=== PATIENT | male | born 1955 | race Hispanic/Latino ===

== ENCOUNTER 2018-05-18 13:26 | Emergency (ER) | payer MEDICARE ==
[2018-05-18] MEDS ORDERED: Morphine 4 mg/ml ISec IVP STA (14:06)
--- NOTE | 2018-05-18 14:13 | ED PDOC ---
Arrival/HPI - General Chief Complaint: Abdominal Pain Historian: Patient - History of Present Illness Narrative History of Present Illness (Text): 05/18/18 14:13 62 y/o male, pmh including chronic lower back pain, previous alcohol abuse, nkda, c/o lower abdominal pain x 3-4 days. Pt. stated that she has lower abdominal on and off x 3-4 days, associated with diarrhea, stated that flared up his chronic lower back pain as well with no new injury or fall, no numbness or tingling, no headache or night sweat, no rash, no palpitation, no chest pain or shortness of breath, no other medical or psychological complaints. Past Medical History - Provider Review Nursing Documentation Reviewed: Yes - Infectious Disease Hx of Infectious Diseases: None - Cardiac Hx Cardiac Disorders: No - Musculoskeletal/Rheumatological Hx Back Pain: Yes Hx Herniated Disk: Yes - Gastrointestinal Hx Gastrointestinal Disorders: No - Genitourinary/Gynecological Hx Genitourinary Disorders: No - Psychiatric Hx Substance Use: No - Anesthesia Hx Anesthesia: No Family/Social History - Physician Review Nursing Documentation Reviewed: Yes Family/Social History: Unknown Family HX Smoking Status: Current Some Days Smoker Hx Alcohol Use: No Hx Substance Use: No Allergies/Home Meds Allergies/Adverse Reactions: Allergies No Known Allergies Allergy (Verified 05/18/18 13:39) Review of Systems - Review of Systems Constitutional: absent: Fatigue, Fevers Eyes: absent: Vision Changes ENT: absent: Hearing Changes Respiratory: absent: SOB, Cough Cardiovascular: absent: Chest Pain Gastrointestinal: Abdominal Pain, Diarrhea. absent: Nausea, Vomiting Musculoskeletal: Back Pain. absent: Arthralgias Skin: absent: Rash, Pruritis Neurological: absent: Headache, Dizziness Psychiatric: absent: Anxiety, Depression, Suicidal Ideation Physical Exam Vital Signs Reviewed: Yes Vital Signs Temp Pulse Resp BP Pulse Ox 05/18/18 13:35 98.6 F 80 18 202/84 H 99 Temperature: Afebrile Blood Pressure: Hypertensive Pulse: Regular Respiratory Rate: Normal Appearance: Positive for: Well-Appearing, Non-Toxic, Comfortable Pain Distress: Moderate Mental Status: Positive for: Alert and Oriented X 3 - Systems Exam Head: Present: Atraumatic, Normocephalic Pupils: Present: PERRL Extroacular Muscles: Present: EOMI Conjunctiva: Present: Normal Mouth: Present: Moist Mucous Membranes Neck: Present: Normal Range of Motion Respiratory/Chest: Present: Clear to Auscultation, Good Air Exchange. No: Respiratory Distress, Accessory Muscle Use Cardiovascular: Present: Regular Rate and Rhythm, Normal S1, S2. No: Murmurs Abdomen: Present: Tenderness (mild lower abd tenderness. ), Normal Bowel Sounds. No: Distention, Peritoneal Signs, Rebound, Guarding Back: Present: Normal Inspection. No: CVA Tenderness, Midline Tenderness, Paraspinal Tenderness, Pain with Leg Raise, Decubitus Ulcer Upper Extremity: Present: Normal Inspection. No: Cyanosis, Edema Lower Extremity: Present: Normal Inspection. No: Edema Neurological: Present: GCS=15, CN II-XII Intact, Speech Normal Skin: Present: Warm, Dry, Normal Color. No: Rashes Psychiatric: Present: Alert, Oriented x 3, Normal Insight, Normal Concentration Medical Decision Making ED Course and Treatment: 05/18/18 14:13 -labs -CT -IVF/pepcid/morphine -Observe and reassess 05/18/18 17:57 -EKG: SR @ 84 BPM, PVC noted, RBBB, no ST elevation or depression, no T wave inversion. Pt. has no cardiopulmonary complaints. -CT abdomen and pelvis: Left staghorn calculus. Left hydronephrosis noted. Fin dings suggestive of both proximal left ureteritis and cystitis. Cirrhotic liver, portosystemic shunt appears to be in satisfactory position. Focal thickening of the wall of the colon/rectosigmoid region. Elective follow-up advised. -Labs show no acute findings except K+ 3.5 (potassium chloride 20meq po ordered) -Lipase 312 (no upper abdominal pain), unlikely pancreatitis. -UA show +UTI, IV rocephine ordered. -Trop is negative after 24 hours. -Mg within normal limit. -CIPRO and flagyl ordered as well. Pt. feels well, no pain now, all labs/radiology results discussed with him, advised avoid tylenol and outpatient GI follow up. -Side effect of cipro explained to him as well including it can causes prolong QT and achilles tendon rupture, avoid gym/exercise, he verbally expressed understanding. -Discharge home with cipro, flagyl, motrin, pepcid, BRAT diet, avoid dairy diet, follow up with your own pmd and GI within 2 days, return to the ER for any new or worsening signs or symptoms. - RAD Interpretation Radiology Orders: 05/18/18 14:06 ABD & PELVIS IV CONTRAST ONLY [CT] Stat Date of service: 05/18/2018 PROCEDURE: CT Abdomen and Pelvis with contrast HISTORY: lower abdomina pain /diarrhea x 3 days COMPARISON: None. TECHNIQUE: Intravenous contrast dose: 100 cc Omnipaque 350. Radiation dose: Total exam DLP = <inf_radiation_dlp> mGy-cm. This CT exam was performed using one or more of the following dose reduction techniques: Automated exposure control, adjustment of the mA and/or kV according to patient size, and/or use of iterative reconstruction technique. FINDINGS: LOWER THORAX: Unremarkable. LIVER: Cirrhotic appearing liver. Evidence of portosystemic shunt. No visible portions of the portal venous system are patent. Simple cyst right hepatic lobe 1.6 x 2.1 cm. GALLBLADDER AND BILE DUCTS: Unremarkable. PANCREAS: Unremarkable. No gross lesion or ductal dilatation. SPLEEN: Top-normal spleen. No focal abnormalities identified. ADRENALS: Unremarkable. No mass. KIDNEYS AND URETERS: Right kidney: Unremarkable. Left kidney in ureter: Staghorn calculus left collecting system. Hydronephrosis noted associated with this. Additional tiny less than 5 mm fragments identified in the distended left collecting system. Left ureter distal to the staghorn calculus mildly distended with thickening of the ureteral wall. Ureteritis frequently assumes this appearance. VASCULATURE: Atherosclerotic calcification and mural plaque present. Findings are seen throughout the aorta which is non aneurysmal BOWEL: Focal eccentric thickening of the wall of the colon rectosigmoid region. This is best seen on axial series 3/image 162. Elective follow-up recommended. APPENDIX: Normal appendix. PERITONEUM: Unremarkable. No free fluid. No free air. LYMPH NODES: Unremarkable. No enlarged lymph nodes. BLADDER: Thickening of the posterior wall of the urinary bladder which is well distended. Findings can be seen with cystitis. REPRODUCTIVE: Unremarkable. BONES: No acute fracture. Grade 1 anterolisthesis L5-S1. Degenerative changes at this level include disc space narrowing and vacuum disc phenomenon. Less pronounced degenerative changes at L2-3. OTHER FINDINGS: None. IMPRESSION: Left staghorn calculus. Left hydronephrosis noted. Findings suggestive of both proximal left ureteritis and cystitis. Cirrhotic liver, portosystemic shunt appears to be in satisfactory position. Focal thickening of the wall of the colon/rectosigmoid region. Elective follow- up advised. Document Management Technician: Radiologist - EKG Interpretation EKG Interpretation (Text): 05/18/18 14:32 SR @ 84 BPM, PVC noted, RBBB, no ST elevation or depression, no T wave inversion. Interpreted by ED Physician: Yes Type: 12 lead EKG - PA / VALVER / Resident Statement MD/DO has reviewed & agrees with the documentation as recorded. Disposition/Present on Arrival - Present on Arrival Any Indicators Present on Arrival: No History of DVT/PE: No History of Uncontrolled Diabetes: No Urinary Catheter: No History of Decub. Ulcer: No History Surgical Site Infection Following: None - Disposition Have Diagnosis and Disposition been Completed?: Yes Diagnosis: UTI (urinary tract infection), Abdominal pain, Colitis, Liver cirrhosis Disposition: HOME/ ROUTINE Disposition Time: 17:59 Patient Plan: Discharge Condition: IMPROVED Additional Instructions: -Discharge home with cipro, flagyl, motrin, pepcid, BRAT diet, avoid dairy diet, follow up with your own pmd and GI within 2 days, return to the ER for any new or worsening signs or symptoms. Prescriptions: Ciprofloxacin/Ciprofloxa HCl [Ciprofloxacin] 500 mg PO BID #14 tab Famotidine [Pepcid] 20 mg PO BID #20 tab Ibuprofen [Motrin Tab] 600 mg PO TID PRN #21 tab PRN Reason: Other metroNIDAZOLE [Flagyl] 500 mg PO TID #30 tab Referrals: Jude Hooker, [Primary Care Provider] - Follow up with primary Jez Nugent MD [Staff Provider] - Follow up with primary [facility] [place] [Outside] - Follow up with primary Forms: [employer] (Nepali), WORK NOTE
[2018-05-18] MEDS ORDERED: Sodium Chloride 0.9% 1,000 ML IV SCH (14:15)
[2018-05-18 16:03] LABS: BASO # 0.03 K/mm3 (0.0-2.0); BASO % 0.3 % (0.0-3.0); EOS % 0.4 % (1.5-5.0); GRAN # 8.07 (1.4-6.5); GRAN % 79.1 % (50.0-68.0); HEMOGLOBIN 14.7 g/dL (14.0-18.0); LYMPH # 1.6 (1.2-3.4); LYMPH % 15.2 % (22.0-35.0); MEAN CELL VOLUME 88.8 fl (80.0-105.0); MEAN CORPUSCULAR HEMOGLOBIN 30.6 pg (25.0-35.0); MEAN CORPUSCULAR HGB CONC 34.4 g/dl (31.0-37.0); MEAN PLATELET VOLUME 10.9 fl (7.0-11.0); MONO # 0.5 (0.1-0.6); RBC 4.81 10^6/uL (3.5-6.1); WHITE BLOOD COUNT 10.2 10^3/uL (4.5-11.0)
[2018-05-18 16:10] LABS: ALB/GLOB RATIO 1.7 (1.1-1.8); ALBUMIN 4.4 g/dL (3.0-4.8); ALT/SGPT 27 U/L (7-56); AST/SGOT 18 U/L (17-59); BLOOD UREA NITROGEN 5 mg/dL (7-21); CALCIUM 9.3 mg/dL (8.4-10.5); GFR NON-AFRICAN AMERICAN > 60; LIPASE 312 U/L (23-300)
[2018-05-18 16:21] LABS: TROPONIN I < 0.01 ng/mL
[2018-05-18 16:45] LABS: PH,URINE 6.5 (4.7-8.0); URINE BILIRUBIN NEGATIVE (NEGATIVE); URINE BLOOD TRACE-INTACT (NEGATIVE); URINE GLUCOSE (UA) NEGATIVE (NEGATIVE); URINE LEUKOCYTE ESTERASE SMALL Leu/uL (NEGATIVE); URINE PROTEIN NEGATIVE mg/dL (<30 mg/dL); URINE UROBILINOGEN 0.2 E.U./dL (<1 E.U./dL)
[2018-05-18] MEDS ORDERED: Iohexol 350 MG/100 ML VIAL ONE (16:52)
[2018-05-18 16:54] LABS: URINE APPEARANCE SL CLOUDY (CLEAR); URINE COLOR YELLOW (YELLOW)
[2018-05-18 17:03] LABS: URINE BACTERIA FEW /hpf; URINE RBC NEGATIVE /hpf (0-2)
[2018-05-18] MEDS ORDERED: cefTRIAXone 1 gm 1 GM/100 ML BAG IVPB STA ×2 (17:25→17:57)
[2018-05-18] MEDS ORDERED: Potassium Chloride 20 mEq ER Tab PO STA (17:25)
--- NOTE | 2018-05-18 17:55 | CT ---
Date of service: 05/18/2018 PROCEDURE: CT Abdomen and Pelvis with contrast HISTORY: lower abdomina pain /diarrhea x 3 days COMPARISON: None. TECHNIQUE: Intravenous contrast dose: 100 cc Omnipaque 350. Radiation dose: Total exam DLP = <inf_radiation_dlp> mGy-cm. This CT exam was performed using one or more of the following dose reduction techniques: Automated exposure control, adjustment of the mA and/or kV according to patient size, and/or use of iterative reconstruction technique. FINDINGS: LOWER THORAX: Unremarkable. LIVER: Cirrhotic appearing liver. Evidence of portosystemic shunt. No visible portions of the portal venous system are patent. Simple cyst right hepatic lobe 1.6 x 2.1 cm. GALLBLADDER AND BILE DUCTS: Unremarkable. PANCREAS: Unremarkable. No gross lesion or ductal dilatation. SPLEEN: Top-normal spleen. No focal abnormalities identified. ADRENALS: Unremarkable. No mass. KIDNEYS AND URETERS: Right kidney: Unremarkable. Left kidney in ureter: Staghorn calculus left collecting system. Hydronephrosis noted associated with this. Additional tiny less than 5 mm fragments identified in the distended left collecting system. Left ureter distal to the staghorn calculus mildly distended with thickening of the ureteral wall. Ureteritis frequently assumes this appearance. VASCULATURE: Atherosclerotic calcification and mural plaque present. Findings are seen throughout the aorta which is non aneurysmal BOWEL: Focal eccentric thickening of the wall of the colon rectosigmoid region. This is best seen on axial series 3/image 162. Elective follow-up recommended. APPENDIX: Normal appendix. PERITONEUM: Unremarkable. No free fluid. No free air. LYMPH NODES: Unremarkable. No enlarged lymph nodes. BLADDER: Thickening of the posterior wall of the urinary bladder which is well distended. Findings can be seen with cystitis. REPRODUCTIVE: Unremarkable. BONES: No acute fracture. Grade 1 anterolisthesis L5-S1. Degenerative changes at this level include disc space narrowing and vacuum disc phenomenon. Less pronounced degenerative changes at L2-3. OTHER FINDINGS: None. IMPRESSION: Left staghorn calculus. Left hydronephrosis noted. Findings suggestive of both proximal left ureteritis and cystitis. Cirrhotic liver, portosystemic shunt appears to be in satisfactory position. Focal thickening of the wall of the colon/rectosigmoid region. Elective follow-up advised.
[2018-05-18 18:56] VITALS: BP 129/53; PULSE 76; RESP 19; TEMP 98; O2SAT 99
--- NOTE | 2018-05-19 09:14 | CARD ---
APPROVED REPORT Date of service: 05/18/2018 EKG Measurement Heart [id number] MA [id number] <Conclusion> Sinus rhythm 1 APC Right bundle branch block NSSYW changes Artifact present
== END 2018-05-18 18:54 | disposition home or self-care (01) ==
LOC: ED 13:26
DX: N39.0 Urinary tract infection, site not specified (principal); K52.9 Noninfective gastroenteritis and colitis, unspecified; K74.60 Unspecified cirrhosis of liver; R10.9 Unspecified abdominal pain
CPT/HCPCS: 74177; 80053; 81001; 83690; 83735; 84484; 85025; 87086; 93005; 96365; 96375; 99284; J0696; J2270; J7030; Q9967